=== PATIENT | female | born 1990 | race Caucasian/White ===

== ENCOUNTER 2016-08-28 09:19 | Emergency (ER) | payer OTHER ==
[~2016-08-28] VITALS: Wt 95.0 kg
[~2016-08-28 09:19] MED LIST: ALD250 PO; APR50 PO; CIPR500T4 PO; PHEN-537 PO; PREN-46 PO; SILV20CR14 TOP; TRAM50TA2 PO
--- NOTE | 2016-08-28 10:59 | ERD ---
ER Documentation Chief Complaint Date/Time DATE: 08/28/16 TIME: 10:56 Chief Complaint EAR PAIN X 2 DAYS HPI This is 26-year-old female who presents to the emergency department today complaining of sinus congestion and a lot of mucus but the past month that she states is dark green. Patient states she has also had some ear pain for the past 2 days. Denies any fevers or chills, nausea vomiting or diarrhea or denies any cough or sore throat. ROS All systems reviewed and are negative except as per history of present illness. Medications Home Meds Active Scripts Phenazopyridine Hcl* (Pyridium*) 100 Mg Tab, 100 MG PO TID, #6 TAB Prov:LAMOTN HUERTA PA-C 03/31/16 Tramadol HCl (Tramadol HCl) 50 Mg Tablet, 50 MG PO BID, #20 TAB Prov:KONRAD AGARWAL 03/29/16 Ciprofloxacin Hcl* (Ciprofloxacin Hcl*) 500 Mg Tablet, 500 MG PO BID, #14 TAB Prov:KONRAD AGARWAL 03/29/16 Hydralazine Hcl* (Hydralazine Hcl*) 50 Mg Tab, 50 MG PO QID, #120 TAB Prov:KONRAD AGARWAL 03/29/16 Silver Sulfadiazine* (Silvadene*) 1% - 20 Gm Cream.gm., 1 APPLIC TOP DAILY, #1 TUB 1 Refill Prov:ANA LUISA BATISTA DO 03/22/15 Reported Medications Vit #108/Iron/Fa ( ONE TABLET) 1 Each Tablet, 1 EACH PO DAILY 08/15/13 Methyldopa* (Aldomet*) 250 Mg Tab, 250 MG PO DAILY for 30 Days 08/15/13 Methyldopa* (Aldomet*) 250 Mg Tab, 250 MG PO BID 07/05/13 Allergies Allergies: Coded Allergies: No Known Allergy (Unverified , 03/22/15) PMhx/Soc History of Surgery: Yes (manoj, ) Anesthesia Reaction: No Hx Neurological Disorder: No Hx Respiratory Disorders: No Hx Cardiac Disorders: Yes (HTN) Hx Psychiatric Problems: No Hx Miscellaneous Medical Probl: No Hx Alcohol Use: Yes (ONCE IN A WHILE) Hx Substance Use: No Hx Tobacco Use: No Physical Exam Vitals Vital Signs Date Time Temp Pulse Resp B/P Pulse Ox O2 Delivery O2 Flow Rate FiO2 08/28/16 09:28 98.0 76 18 126/71 99 Physical Exam Const: Pleasant, no acute distress Head: Atraumatic . Sinus tenderness to palpation maxillary bones Eyes: Normal Conjunctiva ENT: Ears TMs normal. Nose no drainage. Throat no erythema no exudate Neck: Full range of motion..~ No meningismus. Resp: Clear to auscultation bilaterally with no absent breath sounds. No wheezing. Cardio: Regular rate and rhythm, no murmurs Abd: Soft, non tender, non distended. Normal bowel sounds Skin: No petechiae or rashes Neur: Awake and alert Psych: Normal Mood and Affect Procedures/MDM This 26-year-old female who presents to the emergency department today complaining of sinus congestion and mucus for the past month and recent bilateral earache. Physical exam patient does have some sinus tenderness. Given the patient's length and duration of symptoms I thought it appropriate to give the patient Augmentin to treat possible sinusitis.. I have low suspicion for strep pharyngitis, peritonsillar abscess, retropharyngeal abscess, otitis media, PNA, he is afebrile and otherwise well-appearing however abscess, meningitis, sepsis, or other acute infectious bacterial process. At this time the patient is stable for discharge and outpatient management. She'll also be given a prescription for Zyrtec and Flonase. They should follow up with their PCP in the next 1-2. They may return to the emergency department sooner if symptoms persist or worsen. Patient understood and agreed with the plan. MARY VASQUEZ PA-C Aug 28, 2016 10:59
[2016-08-28] MEDS ORDERED: CETI10CA PO (11:01)
[2016-08-28] MEDS ORDERED: AMOX1TAB10 PO (11:01)
[2016-08-28] MEDS ORDERED: FLUT9.9S NASAL (11:01)
== END 2016-08-28 11:32 | disposition home or self-care (01) ==
LOC: FTE 09:19
DX: R09.81 Nasal congestion (principal); H92.03 Otalgia, bilateral; I10 Essential (primary) hypertension
CPT/HCPCS: 99283

== ENCOUNTER 2016-11-10 18:15 | Emergency (ER) | payer SELFPAY ==
[~2016-11-10 18:15] MED LIST changes: +AMOX1TAB10 PO; -APR50 PO; +CETI10CA PO; +FLUT9.9S NASAL; +HYDR-3672 PO
== END 2016-11-10 19:30 | disposition left against medical advice (07) ==
LOC: E/R 18:15
DX: Z53.21 Procedure and treatment not carried out due to patient leaving prior to being seen by health care provider (principal)
CPT/HCPCS: 99281

== ENCOUNTER 2017-03-23 02:18 | Emergency (ER) | payer SELFPAY ==
[~2017-03-23] VITALS: Ht 162.6 cm; Wt 97.5 kg
[2017-03-23 02:21] VITALS: Ht 162.6 cm; Wt 97.5 kg
== END 2017-03-23 03:30 | disposition left against medical advice (07) ==
LOC: E/R 02:18
DX: Z53.21 Procedure and treatment not carried out due to patient leaving prior to being seen by health care provider (principal)

== ENCOUNTER 2018-02-19 12:15 | Emergency (ER) | END 2018-02-19 14:55 | disposition home or self-care (01) ==

== ENCOUNTER 2018-02-25 14:03 | Emergency (ER) | END 2018-02-25 15:56 | disposition home or self-care (01) ==